=== PATIENT | female | born 2000 | race Caucasian/White ===

== ENCOUNTER 2019-08-19 10:25 | Emergency (ER) | payer SELFPAY ==
[~2019-08-19] VITALS: Ht 160 cm; Wt 52.7 kg
[2019-08-19] MEDS ORDERED: ACETAMINOPHEN 500 MG TABLET PO ONE (11:15)
[2019-08-19] MEDS ORDERED: ONDANSETRON HCL 4 MG/2 ML VIAL IVP ONE (12:15)
[2019-08-19] MEDS ORDERED: KETOROLAC TROMETHAMINE 30 MG/ML VIAL IVP ONE (12:15)
[2019-08-19] MEDS ORDERED: SODIUM CHLORIDE 0.9% 1,000 ML IV ONE (12:15)
[2019-08-19 13:44] VITALS: BP 99/64
== END 2019-08-19 13:59 | disposition home or self-care (01) ==
LOC: EMS 10:28
DX: J11.1 Influenza due to unidentified influenza virus with other respiratory manifestations (principal); J45.909 Unspecified asthma, uncomplicated
CPT/HCPCS: 81002; 81025; 96374; 96375; 99283; J1885; J2405; J7030